=== PATIENT | female | born 1990 | race Two or more races ===

== ENCOUNTER 2023-05-22 19:35 | Outpatient (REF) | payer BC, SELFPAY ==
[2023-06-01 18:10] LABS: HPV 16 RNA NOT DETECTED (NOT DETECTED); HPV mRNA E6/E7 rflx Detected (Not Detected)
== END 2023-05-22 19:36 | disposition home or self-care (01) ==
LOC: HO.HHCLNP 19:35
PROVIDERS: Visit Provider Nurse Practitioner Family
DX: Z01.419 Encounter for gynecological examination (general) (routine) without abnormal findings (principal); Z11.51 Encounter for screening for human papillomavirus (HPV)
CPT/HCPCS: 87624; 87625; 88142

== ENCOUNTER 2025-07-05 12:01 | Outpatient (REF) | payer BC, MEDICAID, OTHER, SELFPAY ==
--- OUTSIDE RECORDS SUMMARY | 2025-07-05 11:15 | XMS_ITS | Encounter Summary ---
Author Organization [employer] Address [address] [place] [address] Care Team Providers Care Bottling Equipment Sales Representative Name Role Phone Shannon Chambers MD Primary Care Provider + Reason for Referral * Consultation (Routine) - Authorized Specialty Diagnoses / Procedures Referred By Addison t Referred To Contact Behavioral Health Diagnoses Other specified attention deficit hyperactivity disorder (ADHD) Shannon Chmabers MD [address] [place] [address] Phone: tel: fax: Referral ID Status Reason Start Date Expiration Date Visits Requested Visits Authorized [id number] Authorized Specialty Services Required 07/05/2025 07/05/2026 1 1 Scheduling Instructions Patient prefers TV * Imaging (Routine) - Authorized Specialty Diagnoses / Procedures Referred By Contgeovanni t Referred To Contact Radiology Diagnoses Nodule of right lung Procedures CT Chest w/o Contrast Shannon Chambers MD [address] [place] [address] Phone: tel: fax: [address] Phone: tel: fax: Referral ID Status Reason Start Date Expiration Date V isits Requested Visits Authorized [id number] Authorized 07/05/2025 07/05/2026 1 1 Encounter Details Date Type Department Care Team (Latest Contact Info) Description 07/05/2025 11:15 AM EDT [facility] [address] [place] [address] Shannon Chambers MD [address] [place] [address] Nodule of right lung (Primary Dx); Other specified attention deficit hyperactivity disorder (ADHD); Encounter for routine checking of intrauterine contraceptive device (IUD); Encounter for immunization Social History Tobacco Use Types Packs/Day Years Used Date Smoking Tobacco: Every Day Cigarettes Passive Smoke Exposure: Current Smokeless Tobacco: Never Tobacco Cessation:Ready to Q uit: Not Asked; Counseling Given: Not Answered Alcohol Use Standard Drinks/Week Comments Never 0 (1 standard drink = 0.6 oz pur e alcohol) Depression Answer Date Recorded Patient Health Questionnaire-9 Score 4 04/17/2023 Housing Stability Answer Date Recorded What is your housing situation today? I have yessenia zhong 11/01/[address] you li ve. Do you have problems with any of the following? None of the above 11/01/2024 Food Insecurity Answer Date Recorded Within the past 12 months, y ou worried that your food would run out before you got money to buy more: Never True 11/01/2024 Within the past 12 months,th e food you bought just didn't last and you didn't have enough money to get more: Never True 04/2025 Transportation Answer Date Recorded In the past 12 months, has l ack of transportation kept you from medical appts, meetings, work or from getting things needed for daily living? No 11/01/2024 Utilities Answer Date Recorded In the past 12 months, has t he electric, gas, oil or water company threatened to shut off services in your home? No 11/01/2024 Depression Answer Date Recorded Patient Health Questionnaire-2 Score 0 11/10/2024 Internet Access Answer Date Recorded Internet Access Q1 Yes 11/01/2024 Internet Access Q2 Not on file 11/01/2024 Comments No Sex and Gender Information Value Date Recorded Sex Assigned at Female 08/25/2022 10:40 AM EDT Legal Sex Female 10:40 AM EDT Gender Identity Female 08/25/2022 10:40 AM EDT Sexual Orientation Straight 08/25/2022 10 :40 AM EDT documented as of this encounter Last Filed Vital Signs Vital Sign Reading Time Taken Comments Blood Pressure 116/86 07/05/2025 11:23 AM EDT Pulse 84 07/05/2025 11:23 AM EDT Temperature 36.3 C (97.3 F) 07/05/2025 11:23 AM EDT Respiratory Rate 19 07/05/2025 11:23 AM EDT Oxygen Saturation - - Inhaled Oxygen Concentration - - Weight 73 kg (161 lb) 07/05/2025 11:23 AM EDT Height 154.9 cm (5' 1 ) 07/05/2025 11:23 AM EDT Body Mass Index 30.42 07/05/2025 11:23 AM EDT documented in this encounter Functional Status documented as of this encounter Progress Notes * Shannon Chambers MD - 07/05/2025 11:15 AM EDT SUBJECTIVE: Emani Ibarra is a 35 y.o. year old female who presents for follow up/needs TDAP for work. Denies recent illness, injury, or hospitalization. 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 Her last Td vaccine was probably more than 10 years ago there is none in chart, her COVID immunizations are up-to-date by 2024, we do not have information from childhood immunizations or more recent immunizations. LMP none since she has Mirena 7yo ([facility] in [place]) She had an episode of COVID infection 3 months ago and was seen in the ED on 04/28/2025 with exacerbation of acute chest pain and shortness of breath, rule out PE and cxray showed a 6 mm right lung nodule. She is doing well now, denies pleuritic type chest pain, shortness of breath (last time she used albuterol was 3 months ago) Acute Concerns: Patient is considered increased anxiety and irritability in general around the house when things are not done away or her family does not follow her routine. Patient works full-time, has 3 kids ages 7-15, lives with her , she gets upset when they do not follow her direction or do things the way she is used to do them, she tells me change her routines are very offputting for her due to her anxiety. Social History Social History Narrative Not on file Problem List[1] Family History[2] Review of Systems Constitutional: Negative for chills, fatigue and fever. HENT: Negative for congestion, ear pain, nosebleeds, rhinorrhea, sinus pressure, sore throat and trouble swallowing. Eyes: Negative for pain and discharge. Respiratory: Negative for cough, chest tightness and shortness of breath. Cardiovascular: Negative for chest pain, palpitations and leg swelling. Gastrointestinal: Negative for abdominal pain, blood in stool, constipation, diarrhea and nausea. Endocrine: Negative for polydipsia and polyuria. Genitourinary: Negative for dysuria, frequency, genital sores, pelvic pain and vaginal discharge. Musculoskeletal: Negative for back pain and neck pain. Skin: Negative for rash. Allergic/Immunologic: Negative for environmental allergies. Neurological: Negative for dizziness, seizures, weakness, light-headedness and headaches. Hematological: Negative for adenopathy. Psychiatric/Behavioral: Negative for agitation, behavioral problems, self-injury and suicidal ideas. The patient is nervous/anxious. OBJECTIVE: Vitals: 07/05/25 1123 BP: 116/86 Pulse: 84 Resp: 19 Temp: 97.3 ??F (36.3 ??C) Physical Exam HENT: Right Ear: Tympanic membrane and ear canal normal. Left Ear: Tympanic membrane and ear canal normal. Mouth/Throat: Mouth: Mucous membranes are moist. Pharynx: No oropharyngeal exudate or posterior oropharyngeal erythema. Eyes: Pupils: Pupils are equal, round, and reactive to light. Cardiovascular: Rate and Rhythm: Regular rhythm. Pulses: Normal pulses. Heart sounds: Normal heart sounds. No murmur heard. Pulmonary: Breath sounds: Normal breath sounds. Abdominal: General: Bowel sounds are normal. Palpations: Abdomen is soft. Tenderness: There is no abdominal tenderness. Musculoskeletal: General: Normal range of motion. Cervical back: Neck supple. Skin: General: Skin is warm. Neurological: General: No focal deficit present. Mental Status: She is alert and oriented to person, place, and time. Psychiatric: Mood and Affect: Mood normal. Behavior: Behavior normal. JAI-7 Total Score: 8 (07/05/2025 1:57 PM) Problem List Items Addressed This Visit Nodule of right lung - Primary Incidental finding on CXR status post COVID. This probably a benign nodule, however given patient active smoking, I will order CT scan of the lungs and follow-up with her Counseled to quit smoking Relevant Orders CT Chest w/o Contrast Attention deficit hyperactivity disorder Patient with difficulty planning and taking to unexpected events, agreed to start psychotherapy, prefers televisit. Will continue Adderall XR 20 mg and follow-up in 6 months Patient feels safe at home and is able to reach out for safety Relevant Orders Referral to Behavioral Health Encounter for routine checking of intrauterine contraceptive device (IUD) Has IUD 7 years ago, discussed with her that she is probably nearing the end of the efficacy. She will obtain information from previous procurement representative, will discuss at next visit, she may need to change IUD Other Visit Diagnoses Encounter for immunization Will keep Tdap today, order MMR and hepatitis titers as requested by childcare provider. COVID immunization is up-to-date Relevant Orders TDAP VACCINE 7 yrs + (Completed) Follow Up: Medications Ordered Prior to Encounter[3] [1] Patient Active Problem List Diagnosis Attention deficit hyperactivity disorder Mild intermittent asthma Goiter Nevus Migraine with typical aura Encounter for routine checking of intrauterine contraceptive device (IUD) HPV in female Nodule of right lung [2] Family History Problem Relation Name Age of Onset Hypertension Mother Diabetes type II Father Hypertension Father COPD Father [3] Current Outpatient Medications on File Prior to Visit Medication Sig Dispense Refill albuterol 108 (90 Base) MCG/ACT inhaler Inhale 2 puffs every 6 (six) hours if needed for wheezing. 18 g 0 amphetamine-dextroamphetamine XR (Adderall XR) 20 MG 24 hr capsule TAKE 1 CAPSULE BY MOUTH EVERY MORNING. DO NOT CRUSH OR CHEW. 30 capsule 0 Blood Pressure Monitor kit 1 kit 2 times daily. 1 kit 0 hydrOXYzine HCl (Atarax) 25 MG tablet Take 1 tablet by mouth every 12 (twelve) hours. [DISCONTINUED] amphetamine-dextroamphetamine XR (Adderall XR) 20 MG 24 hr capsule TAKE 1 CAPSULE BYMOUTH EVERY MORNING. DO NOT CRUSH OR CHEW. 30 capsule 0 No current facility-administered medications on file prior to visit. documented in this encounter Miscellaneous Notes * Assessment & Plan Note - Shannon Chambers MD - 07/05/2025 2:29 PM EDT Associated Problem(s): Nodule of right lung Incidental finding on CXR status post COVID. This probably a benign nodule, however given patient active smoking, I will order CT scan of the lungs and follow-up with her Counseled to quit smoking * Assessment & Plan Note - Shannon Chambers MD - 07/05/2025 2:27 PM EDT Associated Problem(s): Attention deficit hyperactivity disorder Patient with difficulty planning and taking to unexpected events, agreed to start psychotherapy, prefers televisit. Will continue Adderall XR 20 mg and follow-up in 6 months Patient feels safe at home and is able to reach out for safety * Assessment & Plan Note - Shannon Chambers MD - 07/05/2025 2:26 PM EDT Associated Problem(s): Encounter for routine checking of intrauterine contraceptive device (IUD) Has IUD 7 years ago, discussed with her that she is probably nearing the end of the efficacy. She will obtain information from previous procurement representative, will discuss at next visit, she may need to change IUD documented in this encounter Plan of Treatment Upcoming Encounters Date Type Department Care Team (Late st Contact Info) Description 09/18/2025 4:00 PM EST [facility] [address] [place] [address] Shannon Chambers MD [address] [place] [address] Scheduled Orders Name Type Priority Associated Diagnoses Orde r Schedule CT Chest w/o Contrast Imaging Routine Nodule of right lung Expected: 07/05/2025 (Approximate), Expires: 07/05/2026 Scheduled Referrals Name Type Priority Associated Diagnoses Orde r Schedule Referral to Behavioral Health Outpatient Referral Routine Other specified attention deficit hyperactivity disorder (ADHD) Expected: 07/05/2025 (Approximate), Expires: 01/02/2027 documented as of this encounter Visit Diagnoses Diagnosis Nodule of right lung- Primary Other diseases of lung, not elsewhere classified Other specified attention deficit hyperactivity disorder (ADHD) Encounter for routine checking of intrauterine contraceptive device (IUD) Encounter for immunization documented in this encounter Additional Health Concerns Assessment Noted Time PHQ-9 Depression Total Score: 4 04/17/20 23 8:59 AM EDT documented as of this encounter Care Teams Bottling Equipment Sales Representative Relationship Specialty Start Date End Date Shannon Chambers MD [address] [place] [address] PCP - General Internal Medicine 06/28/24 documented as of this encounter
[2025-07-05 14:37] LABS: Anion Gap 10 (12-20); Blood Urea Nitrogen 10 mg/dL (9-16); Calcium 9.5 mg/dL (8.4-10.2); Carbon Dioxide 28 mmol/L (22-29); Chloride 105 mmol/L (96-108); Cholesterol 218 mg/dL (<200); Estimated Glomerular Filt Rate > 60; HDL Cholesterol 67 mg/dL (>40); Potassium 4.1 mmol/L (3.3-5.1); Sodium 139 mmol/L (135-145); Triglycerides 90 mg/dL (<150)
[2025-07-05 14:39] LABS: Free T4 (Free Thyroxine) 0.98 ng/dL (0.71-1.85); Thyroid Stimulating Hormone 3.06 uIU/mL (0.32-4.0)
--- OUTSIDE RECORDS SUMMARY | 2025-07-05 15:15 | XMS_ITS | Encounter Summary ---
Author Organization [facility] [facility] Address [address] [place] [address] Care Team Providers Care Facility Sales And Admin Name Role Phone Brionna Patiño Primary Care Provider + Shannon Chambers MD Primary Care Provider + Encounter Details Date Type Department Care Team (Late st Contact Info) Description 09/13/2022 Abstract [facility] [address] [place] [address] ProviderJulieth MD Social History Tobacco Use Types Packs/Day Years Used Date Smoking Tobacco: Never Assessed Comments Unknown Sex and Gender Information Value Date Recorded Sex Assigned at Female 08/25/2022 10:40 AM EDT Legal Sex Female 10:40 AM EDT Gender Identity Female 08/25/2022 10:40 AM EDT Sexual Orientation Straight 08/25/2022 10 :40 AM EDT documented as of this encounter Plan of Treatment Upcoming Encounters Date Type Department Care Team (Late st Contact Info) Description 09/18/2025 4:00 PM EST Office Visit [facility] [address] [place] [address] Shannon Chambers MD [address] [place] [address] documented as of this encounter Visit Diagnoses Not on filedocumented in this encounter Care Teams Facility Sales And Admin Relationship Specialty Start Date End Date Brionna Patiño FNP [address] [place] [address] PCP - General Family Medicine 10/13/22 9/2/24 Shannon Chambers MD [address] [place] [address] PCP - General Internal Medicine 06/28/24 documented as of this encounter
--- OUTSIDE RECORDS SUMMARY | 2025-07-05 15:16 | XMS_ITS | Encounter Summary ---
Author Organization [employer] Address [address] [facility] [address] [place] [address] Care Team Providers Care Brine Supervisor Name Role Phone Brionna Patiño Primary Care Provider [phone] Shannon Chambers MD Primary Care Provider + Reason for Visit * Reason Onset Date Comments Call Back Request 03/23/2024 Encounter Details Date Type Department Care Team (Late st Contact Info) Description 03/23/2024 Telephone [facility] [address] [place], [place] [phone] Brionna Patiño FNP [address] [place], [place] [phone] Call Back Request Social History Tobacco Use Types Packs/Day Years Used Date Smoking Tobacco: Every Day Cigarettes Smokeless Tobacco: Never Alcohol Use Standard Drinks/Week Comments Never 0 (1 standard drink = 0.6 oz pur e alcohol) Depression Answer Date Recorded Patient Health Questionnaire-9 Score 4 04/17/2023 Housing Stability Answer Date Recorded What is your housing situation today? I have yessenia zhong 08/24/[address] you li ve. Do you have problems with any of the following? None of the above 08/24/2023 Food Insecurity Answer Date Recorded Within the past 12 months, y ou worried that your food would run out before you got money to buy more: Never True 08/24/2023 Within the past 12 months,th e food you bought just didn't last and you didn't have enough money to get more: Never True Transportation Answer Date Recorded In the past 12 months, has l ack of transportation kept you from medical appts, meetings, work or from getting things needed for daily living? No 08/24/2023 Utilities Answer Date Recorded In the past 12 months, has t he electric, gas, oil or water company threatened to shut off services in your home? No 08/24/2023 Depression Answer Date Recorded Patient Health Questionnaire-2 Score 0 04/17/2023 Comments Unknown Sex and Gender Information Value Date Recorded Sex Assigned at Female 08/25/2022 10:40 AM EDT Legal Sex Female 10:40 AM EDT Gender Identity Female 08/25/2022 10:40 AM EDT Sexual Orientation Straight 08/25/2022 10 :40 AM EDT documented as of this encounter Miscellaneous Notes * Telephone Encounter - Tricia Perez - 03/23/2024 12:57 PM EDT Tc from pt requesting to speak with an MA in regards to 04/29 PE/TP appointment. Please contact pt at [phone] documented in this encounter Plan of Treatment Upcoming Encounters Date Type Department Care Team (Late st Contact Info) Description 09/18/2025 4:00 PM EST Office Visit [facility] [address] [place] [address] Shannon Chambers MD [address] [place] [address] documented as of this encounter Visit Diagnoses Not on filedocumented in this encounter Additional Health Concerns Assessment Noted Time PHQ-9 Depression Total Score: 4 04/17/20 23 8:59 AM EDT documented as of this encounter Care Teams Brine Supervisor Relationship Specialty Start Date End Date Brionna Patiño FNP [address] [place] [address] PCP - General Family Medicine 08/07/22 06/27/24 Shannon Chambers MD [address] [place] [address] PCP - General Internal Medicine 06/28/24 documented as of this encounter
--- OUTSIDE RECORDS SUMMARY | 2025-07-05 15:16 | XMS_ITS | Encounter Summary ---
Author Organization [employer] Address [address] [facility] [address] [place] [address] Care Team Providers Care Soap Slabber Name Role Phone Shannon Chambers MD Primary Care Provider + Encounter Details Date Type Department Care Team (Latest Contact Info) Description 07/05/2025 Travel Social History Tobacco Use Types Packs/Day Years Used Date Smoking Tobacco: Every Day Cigarettes Passive Smoke Exposure: Current Smokeless Tobacco: Never Alcohol Use Standard Drinks/Week [...] AM EDT documented as of this encounter Functional Status documented as of this encounter Plan of Treatment Upcoming Encounters Date Type Department Care Team (Late st Contact Info) Description 09/18/2025 4:00 PM EST Office Visit [facility] [address] [place] [address] Shannon Chambers MD [address] [place] [address] documented as of this encounter Visit Diagnoses Not on filedocumented in this encounter Additional Health Concerns Assessment Noted Time PHQ-9 Depression Total Score: 4 04/17/20 23 8:59 AM EDT documented as of this encounter Care Teams Soap Slabber Relationship Specialty Start Date End Date Shannon Chambers MD [address] [place] [address] PCP - General Internal Medicine 06/28/24 documented as of this encounter
--- OUTSIDE RECORDS SUMMARY | 2025-07-05 15:16 | XMS_ITS | Encounter Summary ---
Author Organization [employer] Address [address] [facility] [address] [place] [address] Care Team Providers Care Manual Qa Tester Name Role Phone Shannon Chambers MD Primary Care Provider + Reason for Visit * Reason Onset Date Comments Lab Orders 07/03/2025 Encounter Details Date Type Department Care Team ([facility] st Contact Info) Description 07/03/2025 Telephone [facility] [address] [place], [place] [phone] Shannon Chambers MD [address] [place] [address] Lab Orders Social History Tobacco Use Types Packs/Day Years Used Date Smoking Tobacco: Some Days Cigarettes Smokeless Tobacco: Never Alcohol Use Standard [...] encounter Miscellaneous Notes * Telephone Encounter - Mildred David RN - 07/04/2025 9:13 AM EDT TC returned to pt. 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 Does not have as she grew up in [place]. Pt. Needs MMR titers, hepatitis B titers, and aTDAP. Pt. Will have TDAP administered at tomorrow's PCP appt. And will get bloodwork done as well. 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 Pt supposed to start job 07/04/2025 Contact pt at [phone]. documented in this encounter Plan of Treatment Upcoming Encounters Date Type Department Care Team (Late st Contact Info) Description 09/18/2025 4:00 PM EST Office Visit [facility] [address] [place] [address] Shannon Chambers MD [address] [place] [address] Scheduled Orders Name Type Priority Associated Diagnoses Orde r Schedule Measles, Mumps, and Rubella (MMR) Antibodies (IgG) Panel, Immune Status Lab Routine Encounter for immunization Expected: 07/04/2025 (Approximate), Expires: 07/04/2026 Hepatitis B Surface Antibody, Qualitative Lab Routine Encounter for immunization Expected: 07/04/2025 (Approximate), Expires: 07/04/2026 documented as of this encounter Visit Diagnoses Diagnosis Encounter for immunization documented in this encounter Additional Health Concerns Assessment Noted Time PHQ-9 Depression Total Score: 4 04/17/20 23 8:59 AM EDT documented as of this encounter Care Teams Manual Qa Tester Relationship Specialty Start Date End Date Shannon Chambers MD [address] [place] [address] PCP - General Internal Medicine 06/28/24 documented as of this encounter
--- OUTSIDE RECORDS SUMMARY | 2025-07-05 15:16 | XMS_ITS | Clinical Summary ---
Author Organization [employer] Address [address] [place] [address] [address] [place] [address] Care Team Providers Care Nipping Machine Operator Name Role Phone Ioana Dutton MD Primary Care Provider + Allergies No known active allergies Medications hydrOXYzine HCl (Atarax) 25 MG tablet Take 1 tablet by mouth every 12 (twelve) hours. 08/20/20 22 Active Blood Pressure Monitor kit 1 kit 2 times daily. 1 kit 05/22/20 23 Active albuterol 108 (90 Base) MCG/ACT inhaler Inhale 2 puffs every 6 (six) hours if needed for wheezing. 18 g 11/10/19 25 026 Active amphetamine-de xtroamphetamin e XR (Adderall XR) 20 MG 24 hr capsuleIndicat ions:Attention deficit disorder (ADD) in adult TAKE 1 CAPSULE BY MOUTH EVERY MORNING. DO NOT CRUSH OR CHEW. 30 capsule 06/29/20 25 Active amphetamine-de xtroamphetamin e XR (Adderall XR) 20 MG 24 hr capsuleIndicat ions:Attention deficit disorder (ADD) in adult TAKE 1 CAPSULE BY MOUTH EVERY MORNING. DO NOT CRUSH OR CHEW. 30 capsule 05/18/20 25 025 Discontinued(Re order (will not trigger notification to Pharmacy)) Active Problems Problem Noted Date Diagnosed Date Nodule of right lung 07/05/2025 Assessment & Plan (07/05/2025 2:29 PM EDT): Incidental finding on CXR status post COVID. This probably a benign nodule, however given patient active smoking, I will order CT scan of the lungs and follow-up with her Counseled to quit smoking Mild intermittent asthma 11/10/2024 Assessment & Plan (11/10/2024 3:43 PM EST): Its quiescent, she will continue albuterol prn Order PFTs. Agreed to covid and flu Izs today. Goiter 11/10/2024 Assessment & Plan (11/10/2024 10:14 AM EST): She's euthroid Order thyroid US to ro nodules. Nevus 11/10/2024 Assessment & Plan (11/10/2024 10:19 AM EST): On right finger and toe Watchful waiting and fu next appt. Encounter for routine checki ng of intrauterine contraceptive device (IUD) 11/10/2024 Assessment & Plan (07/05/2025 2:26 PM EDT): Has IUD 7 years ago, discussed with her that she is probably nearing the end of the efficacy. She will obtain information from previous jockey room custodian, will discuss at next visit, she may need to change IUD Assessment & Plan (11/10/2024 3:43 PM EST): Unclear which IUD she had inserted 7y ago, so that we can check duration Refer to jockey room custodian for further evaluation. HPV in female 11/10/2024 Assessment & Plan (11/10/2024 3:49 PM EST): Had normal PAP (NIL) on 2022, needs to have PAP repeated, at least, most likely to need colposcopy. Refer to [facility] for further evaluation Attention deficit hyperactivity disorder 022 Assessment & Plan (07/05/2025 2:27 PM EDT): Patient with difficulty planning and taking to unexpected events, agreed to start psychotherapy, prefers televisit. Will continue Adderall XR 20 mg and follow-up in 6 months Patient feels safe at home and is able to reach out for safety Assessment & Plan (11/10/2024 3:40 PM EST): Doing well on Adderall XR 20mg, declines psychotherapy for now She feels safe at home and is able to reach out for safety. Continue low dose Adderall and fu in 3mo Migraine with typical aura 04/15/2022 Assessment & Plan (11/10/2024 3:55 PM EST): >>ASSESSMENT AND PLAN FOR MIGRAINE WITH TYPICAL AURA WRITTEN ON 11/10/2024 3:41 PM BY IOANA DUTTON MD Keep track of sxs and fu with me in 3mo Take Excedrin migraine prn >>ASSESSMENT AND PLAN FOR MIGRAINE WRITTEN ON 11/10/2024 10:15 AM BY IOANA DUTTON MD Keep track of sxs and take either ibuprofen or Excedrin prn , will fu next appt t see if if she needs prophylaxis. Order labs Encounters Date Type Department Care Team Description 07/05/2025 11:15 AM EDT Office Visit [facility] [address] [place] [phone] Ioana Dutton MD Nodule of right lung (Primary Dx); Other specified attention deficit hyperactivity disorder (ADHD); Encounter for routine checking of intrauterine contraceptive device (IUD); Encounter for immunization 07/05/2025 Travel 07/04/2025 Telephone [facility] [address] [place] [address] Ioana Dutton MD chart Prep 07/03/2025 Telephone [facility] [address] [place] [phone] Ioana Dutton MD Lab Orders 06/29/2025 Refill [facility] [address] [place] [address] Ioana Dutton MD Attention deficit disorder (ADD) in adult 05/18/2025 Refill [facility] [address] [place] [address] Ioana Dutton MD Attention deficit disorder (ADD) in adult 04/11/2025 Refill [facility] [address] [place] [address] Ioana Dutton MD Attention deficit disorder (ADD) in adult from Last 3 Months Immunizations Immunization Administration Dates Next Due Influenza injectable quadriv alent preservative free 08/20/2022 Influenza, seasonal, injecta ble, preservative free 11/10/2024 Pfizer Covid-19 Vaccine 12+ 11/10/2024,0 04/15/2022,03/30/2021,2020 Pfizer Covid-19 Vaccine 12+ delmi-sucrose (Jarquin Cap) 04/15/2022 Tdap 07/05/2025 Family History Medical History Relation Name Comments COPD Father Diabetes type II Father Hypertension Father Hypertension Mother Relation Name Status Comments Father Mother Social History Tobacco Use Types Packs/Day Years [...] Orientation Straight 08/25/2022 10 :40 AM EDT Last Filed Vital Signs Vital Sign Reading Time Taken Comments Blood Pressure 116/86 07/05/2025 11:23 AM EDT Pulse 84 07/05/2025 11:23 AM EDT Temperature 36.3 C (97.3 F) 07/05/2025 11:23 AM EDT Respiratory Rate 19 07/05/2025 11:23 AM EDT Oxygen Saturation 99% 11/10/2024 9:35 AM EST Inhaled Oxygen Concentration - - Weight 73 kg (161 lb) 07/05/2025 11:23 AM EDT Height 154.9 cm (5' 1 ) 07/05/2025 11:23 AM EDT Body Mass Index 30.42 07/05/2025 11:23 AM EDT Plan of Treatment Upcoming Encounters Date Type Department Care Team (Late st Contact Info) Description 09/18/2025 4:00 PM EST Office Visit [facility] [address] [place], [place] [phone] Ioana Dutton MD [address] [place], [place] [phone] Health Maintenance Due Date Last Done Comments HPV Vaccines (1 - 3-dose series) 2003 Hepatitis B Vaccines (1 of 3 - 19+ 3-dose series) 2007 Pneumococcal Vaccine: Pediatrics (0 to 5 Years) and At-Risk Patients (6 to 49) Years (1 of 2 - PCV) 2007 Influenza Vaccine (#1) 2025 11/10/2024, 2021 SDOH Screening 11/01/2025 11/01/2024 Depression Screening 11/10/2025 11/10/2024, 04/17/20 23 Family Planning (PISQ) 11/10/2025 11/10/2024 Pap Smear 05/22/2026 05/22/2023 Alcohol/Substance Use Screening 07/05/2026 07/05/2025 Disability Screening 07/05/2026 07/05/2025 Tobacco Screening 07/05/2026 07/05/2025 Cervical Cancer Screening 05/22/2028 HPV/Cotest 05/22/2028 05/22/2023 Lipid Panel 07/05/2030 07/05/2025, 03/27, 04/15/2022 DTaP/Tdap/Td Vaccines (2 - Td or Tdap) 07/05/2035 07/05/2025 Zoster Vaccines (1 of 2) 2038 RSV Patients and Patients Aged 60 years or older (1 - 1-dose 75+ series) 2063 HIV Screening Completed 04/15/2022 Hepatitis C Screening Completed 04/15/2022 COVID-19 Vaccine Completed 11/10/2024, , 04/15/2022, Additional history exists HIB Vaccines Aged Out No longer eligi ble based on patient's age to complete this topic Hepatitis A Vaccines Aged Out No long er eligible based on patient's age to complete this topic IPV Vaccines Aged Out No longer eligi ble based on patient's age to complete this topic Meningococcal B Vaccine Aged Out No l onger eligible based on patient's age to complete this topic Meningococcal Vaccine Aged Out No cherelle donna eligible based on patient's age to complete this topic RSV under 20 months Aged Out No longe r eligible based on patient's age to complete this topic Rotavirus Vaccines Aged Out No longer eligible based on patient's age to complete this topic Procedures Procedure Name Priority Date/Time Associated Diagnosis Comments T4 (THYROXINE), TOTAL Routine 07/05/2025 12:07 PM EDT Goiter TSH Routine 07/05/2025 12:07 PM EDT Goiter T4, FREE Routine 07/05/2025 12:07 PM EDT Goiter LIPID PANEL WITH REFLEX TO DIRECT LDL Routine 07/05/2025 12:07 PM EDT Migraine with typical aura BASIC METABOLIC PANEL Routine 07/05/2025 12:07 PM EDT Migraine with typical aura HPV MRNA E6/E7 REFLEX TO HPV 16, 18/45 Routine 05/22/2023 2:27 PM EDT PAP SMEAR Routine 05/22/2023 2:27 PM EDT ZZZ HISTORICAL HEPATITIS C AB W/REFL TO HCV RNA, QN, PCR Routine 04/15/2022 11:31 AM EDT HIV 1/2 ANTIGEN/ANTIBODY, FOURTH GENERATION W/RFL Routine 04/15/2022 11:31 AM EDT from Last 3 Months or Most Recently Relevant to Health Maintenance Results * (ABNORMAL) HPV mRNA E6/E7 w/Reflex to HPV Genotypes 16, 18/45 (05/22/2023 2:27 PM EDT) HPV nRNA E6/E7 Detected(A ) Not Detected [facility] Comment:Methodology: Transcr iption-Mediated AmplificationThis assay detects E6/E7 viral messenger RNA (mRNA) from 14high-risk HPV types (16,18,31,33,35,39,45,51,52,56,58,59,66,68).Cervical sources are required for HPV testing.If a vaginal source from a patient who has had atotal hysterectomy with removal of cervix wassubmitted, please contact the testing laboratoryfor alternative testing options.For additional information, please refer tohttp://education.[employer]/faq/ZLG925k7(This link if provided for information/educational purposes only.)THIS TEST WAS PERFORMED AT:[facility] [place] [id number] ARAIZA MD HPV 16 RNA NOT DETECTED NOT DETECTED [facility] HPV 18/45 RNA NOT DETECTED NOT DETECTED [facility] Comment:Methodology: Transcr iption Mediated AmplificationCervical sources are required for HPV testing.If a vaginal source from a patient who has had atotal hysterectomy with removal of cervix wassubmitted, please contact the testing laboratoryfor alternative testing options.THIS TEST WAS PERFORMED AT:[facility] [place] [phone] ARAIZA MD 05/22/2023 2:27 PM EDT 05/26/2023 9:15 AM EDT Brionna Patiño [facility] CYTOLOGY ORDERABLES Final R esult [facility] [address] [place] [address] [phone] * Pap Smear (05/22/2023 2:27 PM EDT) 05/22/2023 2:27 PM EDT 05/26/2023 9:15 AM EDT Narrative [facility] - 06/15/2023 3:41 PM EDT ----- ------- Name: FredEmani Age/Sex: 33/F : 1990 Unit#: [id number] Attend Dr: Brionna Patiño EKG/ECG TECHNICIAN Re05/22/23 Status: [facility] REF Location: HO.HHCLNP Disch: ----- ------- SPEC : [id number] RECD: 05/26/23 STATUS: SKYLER MARTINEZ NUM: [id number] KI: 05/22/23-1427 [facility] DR: Brionna Patiño EKG/ECG TECHNICIAN ENTERED: 05/27/23 SP TYPE: Pap Smr FANNIE : ORDERED: Pap Smear, PAP path review Interpretation General Category: Negative for intraepithelial lesion/malignancy. Adequacy: Endocervical component present. Interpretation: Inflammation with associated cellular changes. HPV mRNA E6/E7: DETECTED This assay detects E6/E7 viral messenger RNA (mRNA) from 14 high-risk HPV types (16, 18, 31, 33, 35, 39, 45, 51, 52, 56, 58, 59, 66, 68) HPV Type 16 RNA: Not Detected HPV Type 18/45 RNA: Not Detected HPV testing performed by [facility], [place], [place]. See reference laboratory portion of the EMR for entire report. Clinical Information LMP: Unknown date Previous PAP test: 5 years ago, Unknown findings Material Received ThinPrep-Vaginal/Cervical ----- ------- Signed (signature on file) Stefany Cooper MD 06/15/23 1541 ----- ------- END OF REPORT Brionna Patiño [facility] CYTOLOGY ORDERABLES Final R esult [facility] [address] [place] [phone] * HEPATITIS C AB W/REFL TO HCV RNA, QN, PCR (04/15/2022 11:31 AM EDT) HEPATITIS C ANTIBODY NON-REACT JOAQUINA NON-REACT JOAQUINA [facility] INDEX 0.17 <1.00 [facility] Comment: HCV antibody was non-reactive. There is no laboratory evidence of HCV infection. In most cases, no further action is required. However, if recent HCV exposure is suspected, a test for HCV RNA (test code 27456) is suggested. For additional information please refer to http://[employer]/faq/TBW52u6 (This link is being provided for informational/ educational purposes only.) 04/15/2022 11:3 1 AM EDT Bernadette Statonprema EKG/ECG TECHNICIAN HISTORICAL/NON ORDERABLE LABS Final Result Performing Organization Address [facility] de Phone Number [facility] [address] * HIV 1/2 ANTIGEN/ANTIBODY,FOURTH GENERATION W/RFL (04/15/2022 11:31 AM EDT) HIV-1/2 ANTIGEN AND ANTIBODIES, 4TH GENERATION W/ REFLEX NON-REACT JOAQUINA NON-REACT JOAQUINA [facility] Comment: HIV-1 antigen and HIV-1/HIV-2 antibodies were not detected. There is no laboratory evidence of HIV infection. PLEASE NOTE: This information has been disclosed to you from records whose confidentiality may be protected by state law. If your state requires such protection, then the state law prohibits you from making any further disclosure of the information without the specific written consent of the person to whom it pertains, or as otherwise permitted by law. A general authorization for the release of medical or other information is NOT sufficient for this purpose. For additional information please refer to http://[employer]/faq/JHZ911 (This link is being provided for informational/ educational purposes only.) The performance of this assay has not been clinically validated in patients less than 2 years old. 04/15/2022 11:3 1 AM EDT Bernadette Mayenluis e [facility] BLOOD ORDERABLES Final Res ult Performing Organization Address [facility] de Phone Number [facility] [address] from Last 3 Months or Most Recently Relevant to Health Maintenance Insurance [facility] HMO [facility] STANDARD [facility] Care Teams Nipping Machine Operator Relationship Specialty Start Date End Date Ioana Dutton MD [address] [place] [phone] PCP - General Internal Medicine 06/28/24
--- OUTSIDE RECORDS SUMMARY | 2025-07-05 15:16 | XMS_ITS | Encounter Summary ---
Author Organization [employer] Address [address] [place] [address] Care Team Providers Care Equal Opportunity Director Name Role Phone Shannon Chambers MD Primary Care Provider + Reason for Visit * Reason Onset Date Comments chart Prep 07/04/2025 Encounter Details Date Type Department Care Team ([facility] st Contact Info) Description 07/04/2025 Telephone [facility] [address] [place], [place] [phone] Shannon Chambers MD [address] [place] [phone] chart Prep Social History Tobacco Use Types Packs/Day Years [...] encounter Miscellaneous Notes * Telephone Encounter - John Helms [place] - 07/04/2025 1:32 PM EDT Chart Prep Labs: not done Images: done Referrals: no show Vaccines due: Covid, Flu, PCV20, Hep B, HPV, and DTAP Screenings: not applicable Overdue care gaps: SBIRT, PHQ-9, JAI-7, and Disability screen documented in this encounter Plan of Treatment Upcoming Encounters Date Type Department Care Team (Late st Contact Info) Description 09/18/2025 4:00 PM EST Office Visit [facility] [address] [place] [phone] Shannon Chambers MD [address] [place] [phone] documented as of this encounter Visit Diagnoses Not on filedocumented in this encounter Additional Health Concerns Assessment Noted Time PHQ-9 Depression Total Score: 4 04/17/20 23 8:59 AM EDT documented as of this encounter Care Teams Equal Opportunity Director Relationship Specialty Start Date End Date Shannon Chambers MD [address] [place] [phone] PCP - General Internal Medicine 06/28/24 documented as of this encounter
[2025-07-05 20:42] LABS: Reflex LDLD? No
[2025-07-06 08:05] LABS: HBS Num1 > 1000.00 mIU/mL (0-7.99); ~Hepatitis B Surface Antibody REACTIVE (Nonreactive)
[2025-07-06 09:23] LABS: Rubeola IgG (Measles) >300.00 AU/mL
== END 2025-07-05 12:02 | disposition home or self-care (01) ==
LOC: HO.HHCL 12:01
PROVIDERS: PCP Internal Medicine; Visit Provider Internal Medicine
DX: Z01.84 Encounter for antibody response examination (principal); Z11.59 Encounter for screening for other viral diseases; Z13.6 Encounter for screening for cardiovascular disorders; Z23 Encounter for immunization; G43.009 Migraine without aura, not intractable, without status migrainosus; E04.9 Nontoxic goiter, unspecified
CPT/HCPCS: 36415; 80048; 80061; 84436; 84439; 84443; 84480; 84481; 86706; 86735; 86762; 86765

== ENCOUNTER 2025-08-21 08:45 | Outpatient (REF) | payer OTHER, MEDICAID, SELFPAY ==
--- OUTSIDE RECORDS SUMMARY | 2018-06-29 08:30 | XMS_ITS | Continuity of Care Document ---
Author Organization [facility] Address [address] [place] [address] Phone Care Team Providers Care Textile Engineer Name Role Phone Unavailable Unavailable Unavailable Advance Directives Directive Yes / No Effective Date File Name No Information Encounters Encounter Description Practice Location Reason(s) For Visit Diagnoses Date Provider Providers Copied on Encounter [facility], [address], [place], [place], [id number], [place] tel:[phone] [facility] No Information 8 No Information Referring Provider: ADAM GANN, [address] [place], [address]. tel:[phone] Family History Family Member Type Diagnosis Age At Onset No Information Payers Payer name Insurance type Covered green party ID Authoriza tiprema(s) [facility] [id number] [facility] [id number] Social History Type Description Quantity Date Captured Comments Sex Female Smoking Status No Information Chief Complaint And Reason For Visit No Information History Of Present Illness Encounter Date Complaint History Of Prese nt Illness No Information Instructions Date Instruction Additional Infor mation No Information Assessments Type Assessment Date No Information
--- NOTE | ~2025-08-21 | CT_ITS ---
EXAMINATION: CT CHEST WITH IV CONTRAST INDICATION: Right lung nodule evaluation (incidental CXR finding), patient is a smoker COMPARISON: There are no prior studies available for comparison. TECHNIQUE: Helical CT scan of the chest was performed following administration of intravenous contrast. Coronal and sagittal reformatted images were generated and reviewed. This CT exam was performed with one or more of the following dose reduction techniques: automated exposure control, adjustment of the mA and/or kV according to patient size, use of iterative reconstruction technique. DLP: 131 mGy-cm CHEST: THYROID: The thyroid is unremarkable. LUNGS: There is a 6 mm calcified granuloma in the superior segment of the right lower lobe (image 4, image 60). The lungs are otherwise clear. MEDIASTINUM: There is no mediastinal lymphadenopathy. SHARLA: There is no hilar lymphadenopathy. CARDIOVASCULATURE: The heart is normal in size. There is no pericardial effusion. The thoracic aorta is normal in caliber. DEGREE OF CORONARY CALCIFICATION: none PLEURA: There is no pleural effusion. No pneumothorax. MAIN AIRWAYS: The mainstem bronchi and proximal branches are patent. AXILLA: There is no axillary lymphadenopathy. BONES AND SOFT TISSUES: Unremarkable UPPER ABDOMEN: The visualized portions of the liver, spleen, and adrenals are unremarkable. CT/CT chest w IV con IMPRESSION: 6 mm calcified granuloma in the superior segment of the right lower lobe. Otherwise unremarkable contrast-enhanced CT of the chest. Electronically signed by: Henry Watson MD 08/21/2025 10:14 AM EDT
--- OUTSIDE RECORDS SUMMARY | 2025-08-21 09:21 | XMS_ITS | Encounter Summary ---
Author Organization [employer] [facility] Address [address] [place] [phone] Care Team Providers Care Freight Elevator Operator Name Role Phone Brionna Patiño Primary Care Provider + Shannon Chambers MD Primary Care Provider + Encounter Details Date Type Department Care Team (Late st Contact Info) Description 09/13/2022 Abstract [facility] [address] [place] [phone] ProviderJulieth MD Social History Tobacco Use Types [...] Description 09/18/2025 4:00 PM EST Office Visit [facility] [address] [place] [phone] Shannon Chambers MD [address] [place] [phone] documented as of this encounter Visit Diagnoses Not on filedocumented in this encounter Care Teams Freight Elevator Operator Relationship Specialty Start Date End Date Brionna Patiño FNP [address] [place] [phone] PCP - General Family Medicine 10/13/22 9/2/24 Shannon Chambers MD [address] [place] [phone] PCP - General Internal Medicine 06/28/24 documented as of this encounter
[2025-08-21] MEDS: iohexoL 350 MG/ML 100 ML INFUS..BTL 65 ML IV (09:22)
--- OUTSIDE RECORDS SUMMARY | 2025-08-21 09:22 | XMS_ITS | Encounter Summary ---
Author Organization [employer] Address [address] [facility] [address] [place] [address] Care Team Providers Care Editor Producer Name Role Phone Shannon Chambers MD Primary Care Provider + Encounter Details Date Type Department Care Team (Late st Contact Info) Description 07/05/2025 Results Follow-Up [facility] [address] [place], [place] [phone] Shannon Chambers MD [address] [place] [address] Basic Metabolic Panel, Lipid Panel with Reflex to Direct LDL, T4, Free, Additional followed-up results: 2 Social History Tobacco Use Types Packs/Day Years [...] Functional Status documented as of this encounter Miscellaneous Notes * Result Encounter Note - Shannon Chambers MD - 07/05/2025 4:26 PM EDT Today's labs reviewed. Will address mild hyperlipidemia at upcoming appt, other labs are nl documented in this encounter Plan of Treatment Upcoming Encounters Date Type Department Care Team (Late st Contact Info) Description 09/18/2025 4:00 PM EST Office Visit [facility] [address] [place] [address] Shannon Chambers MD [address] [place] [address] documented as of this encounter Visit Diagnoses Not on filedocumented in this encounter Additional Health Concerns Assessment Noted Time PHQ-9 Depression Total Score: 4 04/17/20 23 8:59 AM EDT documented as of this encounter Care Teams Editor Producer Relationship Specialty Start Date End Date Shannon Chambers MD [address] [place] [phone] PCP - General Internal Medicine 06/28/24 documented as of this encounter
--- OUTSIDE RECORDS SUMMARY | 2025-08-21 09:22 | XMS_ITS | Clinical Summary ---
Author Organization [employer] Address [address] [facility] 7t [place] [address] Care Team Providers Care Compliance Administrator Name Role Phone Ioana Dutton MD Primary Care Provider + Allergies No known active allergies Medications * This document contains information received from the source organization and may not represent a complete record from that organization. hydrOXYzine HCl (Atarax) 25 MG tablet Take [...] DO NOT CRUSH OR CHEW. 30 capsule 08/01/20 25 Active amphetamine-de xtroamphetamin e XR (Adderall XR) 20 MG 24 hr capsuleIndicat ions:Attention deficit disorder (ADD) in adult TAKE 1 CAPSULE BY MOUTH EVERY MORNING. DO NOT CRUSH OR CHEW. 30 capsule 06/29/20 25 025 Discontinued(Re order (will not trigger [...] efficacy. 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 HPV in female 11/10/2024 Assessment & Plan (11/10/2024 3:49 PM EST): Had normal PAP (NIL) on 2022, needs to have PAP repeated, at least, most likely to need colposcopy. Refer to [facility] for further evaluation Attention deficit hyperactivity disorder [...] if she needs prophylaxis. Order labs Encounters * This document contains information received from the source organization and may not represent a complete record from that organization. Date Type Department Care Team Description 07/31/2025 Refill [facility] [address] [place] [phone] Ioana Dutton MD Attention deficit disorder (ADD) in adult 07/31/2025 Telephone [facility] [address] [place] [address] Ioana Dutton MD 07/26/2025 Travel 07/24/2025 Travel 07/20/2025 Results Follow-Up [facility] [address] [place] [phone] Ioana Dutton MD Measles, Mumps, and Rubella (MMR) Antibodies (IgG) Panel, Immune Status, Hepatitis B Surface Antibody, Qualitative 07/05/2025 11:15 AM EDT Office Visit [facility] [address] [place] [address] Ioana Dutton MD Nodule of right lung (Primary Dx); Other specified attention deficit hyperactivity disorder (ADHD); Encounter for routine checking of intrauterine contraceptive device (IUD); Encounter for immunization 07/05/2025 Results Follow-Up [facility] [address] [place] [address] Ioana Dutton MD Basic Metabolic Panel, Lipid Panel with Reflex to Direct LDL, T4, Free, Additional followed-up results: 2 07/05/2025 Travel 07/04/2025 Telephone [facility] [address] [place] [address] Ioana Dutton MD chart Prep 07/03/2025 Telephone [facility] [address] [place] [address] Ioana Dutton MD Lab Orders 06/29/2025 Refill [facility] [address] [place], [place] [phone] Ioana Dutton MD Attention deficit disorder (ADD) [...] Date Recorded Patient Health Questionnaire-9 Score 4 08/02/2025 Patient Health Questionnaire-9 Score 4 08/02/2025 Last PHQ-9: Questionnaire Data Not on file 1 Housing Stability Answer Date Recorded What is [...] Date Recorded Patient Health Questionnaire-2 Score 0 08/02/2025 Internet Access Answer Date Recorded Internet Access [...] Description 09/18/2025 4:00 PM EST Office Visit [facility] [address] [place] [address] Ioana Dutton MD [address] [place] [address] Health Maintenance Due Date Last Done Comments HPV Vaccines (1 - 3-dose series) 2003 Hepatitis A Vaccines (1 of 2 - Risk 2-dose series) 2007 Pneumococcal Vaccine: Pediatrics (0 to 5 Years) and At-Risk Patients (6 to 49) Years (1 of 2 - PCV) 2007 Influenza Vaccine (#1) 2025 11/10/2024, 2021 SDOH Screening 11/01/2025 11/01/2024 Family Planning (PISQ) 11/10/2025 11/10/2024 Pap Smear 05/22/2026 05/22/2023 Alcohol/Substance Use Screening 07/05/2026 07/05/2025 Disability Screening 07/05/2026 07/05/2025 Tobacco Screening 07/05/2026 07/05/2025 Depression Screening 08/02/2026 08/02/2025, 08/02/20 Cervical Cancer Screening 05/22/2028 HPV/Cotest 05/22/2028 05/22/2023 [...] patient's age to complete this topic Hepatitis B Vaccines Discontinued IPV Vaccines Aged Out No longer eligi [...] Procedure Name Priority Date/Time Associated Diagnosis Comments HEPATITIS B SURFACE ANTIBODY, QUALITATIVE Routine 07/05/2025 12:07 PM EDT Encounter for immunization MEASLES, MUMPS, AND RUBELLA (MMR) AB (IGG) PANEL, IMMUNE STATUS Routine 07/05/2025 12:07 PM EDT Encounter for immunization T4 (THYROXINE), TOTAL Routine 07/05/2025 12:07 PM EDT Goiter TSH Routine 07/05/2025 12:07 PM EDT Goiter T4, FREE Routine 07/05/2025 12:07 PM EDT Goiter T3, TOTAL Routine 07/05/2025 12:07 PM EDT Goiter T3, FREE Routine 07/05/2025 12:07 PM EDT Goiter [...] Recently Relevant to Health Maintenance Results * Measles, Mumps, and Rubella (MMR) Antibodies??(IgG) Panel, Immune Status (07/05/2025 12:07 PM EDT) Mumps Virus IgG Antibody 45.10 AU/mL [facility] Comment:AU/mL Interpretation ------- <9.00 Not consistent with immunity9.00-10.99 Equivocal>10.99 Consistent with immunityThe presence of mumps IgG antibody suggests immunizationor past or current infection with mumps virus. Rubella IgG Antibody 1.55 Index [facility] Comment:Index Interpretation ----- <0.90 Not consistent with immunity 0.90-0.99 Equivocal > or = 1.00 Consistent with immunityThe presence of rubella IgG antibody suggestsimmunization or past or current infection withrubella virus.THIS TEST WAS PERFORMED AT:[facility] [place] [phone] ARAIZA MD Rubeola IgG (Measles) >300.00 AU/mL [facility] Comment:AU/mL Interpretation ----- <13.50 Not consistent with .50-16.49 Equivocal>16.49 Consistent with immunityThe presence of measles IgG suggests immunization orpast or current infection with measles virus.For additional information, please refer tohttp://education.Anal[employer]ines/faq/FCZ799(This link is being provided for informational/educational purposes only.) Blood Venous blood specimen / Unknown 07/05/2025 12:07 PM EDT 07/05/2025 1:57 PM EDT us Ioana Dutton MD LAB BLOOD ORDERABLES Fin al Result [facility] [address] [place] [phone] * (ABNORMAL) Lipid Panel with Reflex to Direct LDL (07/05/2025 12:07 PM EDT) Triglycerides 90 <150 mg/dL [facility] Comment:Desirable Triglyceri de: less than 150 mg/dLBorderline High Triglyceride 150-199 mg/dLHigh Triglyceride: 200-499 mg/dLVery High Triglyceride: greater than or equal to 5OO mg/dL Cholesterol 218(H) <200 mg/dL [facility] Comment:Desirable Cholestero l: less than 200 mg/dLBorderline High Cholesterol: 200-239 mg/dLHigh Cholesterol: greater than 239 mg/dL LDL Cholesterol Calculated 133(H) <100 mg/dL [facility] Comment:Desirable LDL: less than 100 mg/dLNear Optimal/Above Optimal LDL: 110- 129 mg/dLBorderline High LDL: 130-159 mg/dLHigh LDL: 160-189 mg/dLVery High LDL: greater than or equal to 190 mg/dL HDL Cholesterol 67 >40 mg/dL [facility] Comment:Desirable HDL: great er than 40 mg/dL Note: This HDL assay may give artificially low results in patients with liver disease. Blood 07/05/2025 12:0 7 PM EDT 07/05/2025 1:57 PM EDT us Ioana Dutton MD LAB BLOOD ORDERABLES Fin al Result Performing Organization Address City/[facility]/ZIP Co de Phone Number [facility] [address] [place] [phone] * Hepatitis B Surface Antibody, Qualitative (07/05/2025 12:07 PM EDT) ~Hepatitis B Surface Antibody REACTIVE Nonreactive [facility] Comment:REACTIVE: > 11.99 mI U/mL Blood Venous blood specimen / Unknown 07/05/2025 12:07 PM EDT 07/05/2025 1:57 PM EDT us Ioana Dutton MD LAB BLOOD ORDERABLES Fin al Result Performing Organization Address City/[facility]/ZIP Co de Phone Number [facility] [address] [place] [phone] * T3, Free (07/05/2025 12:07 PM EDT) T3, Free 3.5 2.3 - 4.2 pg/mL [facility] Comment:THIS TEST WAS PERFOR MED AT:[facility] [address] [phone] ARAIZA MD Blood Venous blood specimen / Unknown 07/05/2025 12:07 PM EDT 07/05/2025 1:57 PM EDT Ioana Dutton MD LAB BLOOD ORDERABLES Fin al Result Performing Organization Address City/[facility]/ZIP Co de Phone Number [facility] [address] [place] [phone] * T3, Total (07/05/2025 12:07 PM EDT) T3, Total 122 76 - 181 ng/dL [facility] Comment:THIS TEST WAS PERFOR MED AT:[facility] [address] [phone] ARAIZA MD Blood Venous blood specimen / Unknown 07/05/2025 12:07 PM EDT 07/05/2025 1:57 PM EDT us Ioana Dutton MD LAB BLOOD ORDERABLES Fin al Result Performing Organization Address City/[facility]/ZIP Co de Phone Number [facility] [address] [place] [phone] * TSH (07/05/2025 12:07 PM EDT) Thyroid Stimulating Hormone 3.06 0.32 - 4.0 uIU/mL [facility] Comment:Note: A sustained TS H level above 2.5 uIU/mL may warrant further investigation. TSH 3rd Generation ([facility]) Blood Venous blood specimen / Unknown 07/05/2025 12:07 PM EDT 07/05/2025 1:57 PM EDT us Ioana Dutton MD LAB BLOOD ORDERABLES Fin al Result Performing Organization Address [facility] Co de Phone Number [facility] [address] [place] [phone] * T4, Free (07/05/2025 12:07 PM EDT) Free T4 (Free Thyroxine) 0.98 0.71 - 1.85 ng/dL [facility] Blood Venous blood specimen / Unknown 07/05/2025 12:07 PM EDT 07/05/2025 1:57 PM EDT Ioana Dutton MD LAB BLOOD ORDERABLES Fin al Result Performing Organization Address [facility] Co de Phone Number [facility] [address] [place] [phone] * T4 (Thyroxine), Total (07/05/2025 12:07 PM EDT) T4 Thyroxine 7.8 4.5 - 12.0 ug/dL [facility] Blood Venous blood specimen / Unknown 07/05/2025 12:07 PM EDT 07/05/2025 1:57 PM EDT Ioana Dutton MD LAB BLOOD ORDERABLES Fin al Result Performing Organization Address [facility] Co de Phone Number [facility] [address] [place] [phone] * (ABNORMAL) Basic Metabolic Panel (07/05/2025 12:07 PM EDT) Sodium 139 135 - 145 mmol/L [facility] Potassium 4.1 3.3 - 5.1 mmol/L [facility] Chloride 105 96 - 108 mmol/L [facility] Carbon Dioxide 28 22 - 29 mmol/L [facility] Anion Gap 10(L) 12 - 20 [facility] Urea Nitrogen (BUN) 10 9 - 16 mg/dL [facility] Creatinine, Serum 0.68 0.5 - 1.4 mg/dL [facility] Estimated Glomerular Filt Rate >60 [facility] Comment:Chronic Kidney Disea se: Estimated GFR < 60 mL/min/1.89o7Lcrhtl Kidney Disease: Estimated GFR < 15 mL/min/1.73m2 Glucose 97 60 - 115 mg/dL [facility] Calcium 9.5 8.4 - 10.2 mg/dL [facility] Blood Venous blood specimen / Unknown 07/05/2025 12:07 PM EDT 07/05/2025 1:57 PM EDT Ioana Dutton MD LAB BLOOD ORDERABLES Fin al Result [facility] [address] [place] [phone] * (ABNORMAL) HPV mRNA E6/E7 w/Reflex to HPV Genotypes 16, 18/45 (05/22/2023 2:27 PM EDT) HPV nRNA E6/E7 Detected(A ) Not Detected [facility] Comment:Methodology: Transcr iption-Mediated AmplificationThis assay detects E6/E7 viral messenger RNA (mRNA) from 14high-risk HPV types (16,18,31,33,35,39,45,51,52,56,58,59,66,68).Cervical sources are required for HPV testing.If a vaginal source from a patient who has had atotal hysterectomy with removal of cervix wassubmitted, please contact the testing laboratoryfor alternative testing options.For additional information, please refer tohttp://education.Synthorx/faq/XIN462l3(This link if provided for information/educational purposes only.)THIS TEST WAS PERFORMED AT:[facility] [place] [phone] ARAIZA MD HPV 16 RNA NOT DETECTED NOT DETECTED [facility] HPV 18/45 RNA NOT DETECTED NOT DETECTED [facility] Comment:Methodology: Transcr iption Mediated AmplificationCervical sources are required for HPV testing.If a vaginal source from a patient who has had atotal hysterectomy with removal of cervix wassubmitted, please contact the testing laboratoryfor alternative testing options.THIS TEST WAS PERFORMED AT:[facility] [place] [phone] ARAIZA MD 05/22/2023 2:27 PM EDT 05/26/2023 9:15 AM EDT us Brionna Patiño ORGANIC PREPARATION ANALYST LAB CYTOLOGY ORDERABLES Final R esult [facility] [address] [place] [phone] * Pap Smear (05/22/2023 2:27 PM EDT) 05/22/2023 2:27 PM EDT 05/26/2023 9:15 AM EDT Narrative [facility] - 06/15/2023 3:41 PM EDT ----- ------- Name: Emani Ibarra Age/Sex: 33/F : 1990 Unit#: [id number] Attend Dr: Brionna Patiño PRICING COORDINATOR Re05/22/23 Status: DEP REF Location: [facility] Disch: ----- ------- SPEC : [id number] RECD: 05/26/23 STATUS: SKYLER MARTINEZ NUM: [id number] KI: 05/22/23-[address] [facility] [address]: Brionna Patiño PRICING COORDINATOR ENTERED: 05/27/23 SP TYPE: Pap Smr OTHR DR: ORDERED: Pap Smear, PAP path review Interpretation [...] RNA: Not Detected HPV testing performed by [facility], [place], [place]. See reference laboratory portion of the EMR for entire report. Clinical Information LMP: Unknown date Previous PAP test: 5 years ago, Unknown findings Material Received ThinPrep-Vaginal/Cervical ----- ------- Signed (signature on file) Stefany Cooper MD 06/15/23 1541 ----- ------- END OF REPORT Brionna Patiño [facility] LAB CYTOLOGY ORDERABLES Final R esult [facility] [address] [place] [phone] * HEPATITIS C AB W/REFL TO HCV RNA, QN, PCR (04/15/2022 11:31 AM EDT) HEPATITIS C ANTIBODY NON-REACT JOAQUINA NON-REACT JOAQUINA [facility] INDEX 0.17 <1.00 [facility] Comment: HCV antibody was non-reactive. There is no laboratory evidence of HCV infection. In most cases, no further action is required. However, if recent HCV exposure is suspected, a test for HCV RNA (test code 75393) is suggested. For additional information please refer to http://Zivame.com.Synthorx/faq/FSA37z8 (This link is being provided for informational/ educational purposes only.) 04/15/2022 11:3 1 AM EDT Bernadette Tari [place] [facility]ISTORICAL/NON ORDERABLE LABS Final Result [facility] [address] * HIV 1/2 ANTIGEN/ANTIBODY,FOURTH GENERATION W/RFL (04/15/2022 11:31 AM EDT) HIV-1/2 ANTIGEN AND ANTIBODIES, 4TH GENERATION W/ REFLEX NON-REACT JOAQUINA NON-REACT JOAQUINA [facility] Comment: HIV-1 antigen and HIV-1/HIV-2 [...] purpose. For additional information please refer to http://Zivame.com.Synthorx/faq/AAX734 (This link is being provided for informational/ educational purposes only.) The performance of this assay has not been clinically validated in patients less than 2 years old. 04/15/2022 11:3 1 AM EDT us Bernadette Marc NP LAB BLOOD ORDERABLES Final Res ult [facility] [address] from Last 3 Months or Most Recently Relevant to Health Maintenance [place] [address] [place] [phone] [place] [address] [facility] , [address] [place] [address] Care Teams Compliance Administrator Relationship Specialty Start Date End Date Ioana Dutton MD [address] [place] [phone] PCP - General Internal Medicine 06/28/24
--- OUTSIDE RECORDS SUMMARY | 2025-08-21 09:22 | XMS_ITS | Encounter Summary ---
Author Organization [employer] Address [address] [facility] 7t [place] [address] Care Team Providers Care Senior Software Test Engineer Name Role Phone Shannon Chambers MD Primary Care Provider + Encounter Details Date Type Department Care Team (Late st Contact Info) Description 07/20/2025 Results Follow-Up [facility] [address] [place], [place] [phone] Shannon Chambers MD [address] [place] [address] Measles, Mumps, and Rubella (MMR) Antibodies (IgG) Panel, Immune Status, Hepatitis B Surface Antibody, Qualitative Social History Tobacco Use Types Packs/Day Years [...] Encounter Note - Shannon Chambers MD - 07/20/2025 1:56 PM EDT Labs on 07/05/2025 showed MMR and hep B immunity, please update care gaps with positive titers for those vaccines. documented in this encounter Plan of Treatment Upcoming Encounters Date Type Department Care Team (Late st Contact Info) Description 09/18/2025 4:00 PM EST Office Visit [facility] [address] [place] [phone] Shannon Chambers MD [address] [place] [address] documented as of this encounter Visit Diagnoses Not on filedocumented in this encounter Additional Health Concerns Assessment Noted Time PHQ-9 Depression Total Score: 4 04/17/20 23 8:59 AM EDT documented as of this encounter Care Teams Senior Software Test Engineer Relationship Specialty Start Date End Date Shannon Chambers MD [address] [place] [phone] PCP - General Internal Medicine 06/28/24 documented as of this encounter
--- OUTSIDE RECORDS SUMMARY | 2025-08-21 09:22 | XMS_ITS | Encounter Summary ---
Author Organization [employer] Address [address] [facility] 7t [place] [address] Care Team Providers Care Nursing Program Chair Name Role Phone Brionna Patiño Primary Care Provider [phone] Shannon Chambers MD Primary Care Provider + Reason for Visit * Reason Onset Date Comments Call Back Request 03/23/2024 Encounter Details Date Type Department Care Team (Late st Contact Info) Description 03/23/2024 Telephone [facility] [address] [place], [place] [phone] Brionna Patiño FNP [address] [place], [place] [phone] Call Back Request Social History Tobacco Use [...] 04/29 PE/TP appointment. Please contact pt at [phone] documented in this encounter Plan of Treatment Upcoming Encounters Date Type Department Care Team (Late st Contact Info) Description 09/18/2025 4:00 PM EST Office Visit [facility] [address] [place] [address] Shannon Chambers MD [address] [place] [address] documented as of this encounter Visit Diagnoses Not on filedocumented in this encounter Additional Health Concerns Assessment Noted Time PHQ-9 Depression Total Score: 4 04/17/20 23 8:59 AM EDT documented as of this encounter Care Teams Nursing Program Chair Relationship Specialty Start Date End Date Brionna Patiño FNP [address] [place] [phone] PCP - General Family Medicine 08/07/22 06/27/24 Shannon Chambers MD [address] [place] [phone] PCP - General Internal Medicine 06/28/24 documented as of this encounter
== END 2025-08-21 08:46 | disposition home or self-care (01) ==
LOC: HO.CT 08:45
PROVIDERS: PCP Internal Medicine; Visit Provider Internal Medicine
DX: R91.1 Solitary pulmonary nodule (principal)
CPT/HCPCS: 71260; Q9967

== ENCOUNTER → 2025-08-21 08:48 | Outpatient (BNV) | payer OTHER, MEDICAID, SELFPAY | PROVIDERS: PCP Internal Medicine; Visit Provider Radiology Diagnostic Radiology | DX: J84.10 Pulmonary fibrosis, unspecified (principal) | CPT/HCPCS: 71260 ==